=== PATIENT | female | born 1945 | race Caucasian/White ===

== ENCOUNTER → 2017-05-22 | Outpatient (CLI) | payer OTHER, MEDICARE | LOC: BMCIMAGING 08:19 | PROVIDERS: ATTEND Nurse Practitioner Adult Health | DX: Z12.31 Encounter for screening mammogram for malignant neoplasm of breast (principal) | CPT/HCPCS: G0202 ==

== ENCOUNTER → 2018-11-11 | Outpatient (CLI) | payer OTHER, MEDICARE ==
[~2018-11-11] MED LIST: IOPAMIDOL (ISOVUE 370) 100 ML BTL IV ONE
== END ==
LOC: CIMAGING 17:09
PROVIDERS: ATTEND Internal Medicine
DX: J18.9 Pneumonia, unspecified organism (principal); I77.6 Arteritis, unspecified
CPT/HCPCS: 71260; Q9967; 82565-PO

== ENCOUNTER → 2019-04-01 | Outpatient (CLI) | payer OTHER, MEDICARE | LOC: BMCIMAGING 16:06 ==

== ENCOUNTER 2019-04-02 11:28 | Inpatient (IN) | payer OTHER, MEDICARE | END 2019-04-15 14:05 | disposition home health service (06) | LOC: F2N 04-03 04:55 → F1N 04-05 18:19 → F2N 16:02 ==

== ENCOUNTER 2019-04-17 19:27 | Emergency (ER) | payer OTHER, MEDICARE | END 2019-04-17 21:01 | disposition home or self-care (01) ==